=== PATIENT | female | born 1960 | race Caucasian/White ===

== ENCOUNTER 2022-01-29 12:50 | Outpatient (CLI) | payer OTHER, SELFPAY ==
--- NOTE | 2022-01-29 13:04 | ECG_ITS ---
Measurements Intervals [place] Rate: 74 P: 23 OK: 135 QRS: 2 QRSD: 95 T: 31 QT: 387 QTc: 432 Interpretive Statements SINUS RHYTHM WITHIN NORMAL LIMITS NO PREVIOUS ECG AVAILABLE FOR COMPARISON Electronically Signed On 01-29-2022 15:03:39 CDT by Eddi Rodriguez M.D.
[2022-01-29 13:44] LABS: Hematocrit 38.8 % (37.0-47.0); Hemoglobin 12.5 g/dL (12.0-15.0)
[2022-01-29 14:01] LABS: Anion Gap 6 mmol/L (8-16); Blood Urea Nitrogen 21 mg/dL (7-17); Calcium 8.9 mg/dL (8.4-10.2); Carbon Dioxide 27 mmol/L (22-30); Chloride 103 mmol/L (98-107); Estimated Glomerular Filt Rate 57; Glucose 99 mg/dL (65-110); Potassium 3.9 mmol/L (3.4-5.0); Sodium 136 mmol/L (137-145)
== END 2022-01-29 12:51 | disposition home or self-care (01) ==
LOC: ANHSURGERY 12:55
PROVIDERS: Anesthesiology; PCP Family Medicine; Visit Provider Obstetrics & Gynecology Gynecology
DX: Z01.818 Encounter for other preprocedural examination (principal); I10 Essential (primary) hypertension; N85.02 Endometrial intraepithelial neoplasia [EIN]; Z79.899 Other long term (current) drug therapy
CPT/HCPCS: 36415; 80048; 85014; 85018; 86850; 86900; 86901; 93005

== ENCOUNTER 2022-02-05 14:29 | Inpatient (IN) | payer OTHER, SELFPAY ==
[2022-01-26 15:04] VITALS: BMI 40.7
--- NOTE | 2022-01-26 15:16 | PC.NURSE ---
Report to the Outpatient Waiting Room, entrance under the green pavilion located off [facility], at time 7:30 on date 02/05/22. OR Time: 9:30. - You and your visitor will be asked a series of questions to screen for COVID 19 for your protection. - A mask is required within the hospital. One visitor will be allowed to accompany the patient into the hospital. Patients visitor will be instructed to remain with patient at all times or leave the building. We will allow the visitor to come back to the postoperative area when patient is ready. Preoperative COVID Testing Requirements: No COVID Test needed if: (proof is required; if not received patient will have Rapid Test prior to entry) - Patient has received COVID Vaccine at least 14 days prior to procedure date or - Patient has positive COVID test result within last 90 days of surgery date. COVID Test needed if above criteria is not met Patients may have clear liquids (water, carbonated beverages, clear teas, apple juice) until 3 hours prior to surgery (6:30) with a maximum of 20 ounces. - No food from midnight until time of surgery Take the following medications with a SIP of water the morning of surgery: BUPROPION, BUSPIRONE, TRINTELLIX Medications to discontinue per physician: VITAMINS/SUPPLEMENTS Date to take last dose: 02/01/22 Please no make-up, nail turkmen, hairspray, perfume, deodorant, or body powder the day of surgery. No jewelry (including any body piercings) or valuables the day of surgery, leave them at home. Please take a shower or bath the night before, or the morning of, surgery with an antibacterial soap. Wear comfortable, loose fitting clothing. - Jewelry must be removed prior to entering the operating room. Rings and piercings that are not removed may be cut off. - The hospital will not accept responsibility for valuables. - Please leave all valuables, including medications, at home the day of surgery. If you are going home after surgery, a licensed [employer] driver must drive you home. - NO public transportation without another adult. - We recommend that an adult stay with you for 24 hours following discharge. - We also recommend that you do not drive, make important decision, drink alcoholic beverages, or take any drugs that were not prescribed by your health care provider for at least 24 hours after your discharge time. Follow any additional instructions given to you from your surgeon. Telephone instructions given to WILLIAM LOPEZ and asked if any additional questions and then verbalized understanding. Patient advised to call surgeon office or pre surgery nurse liaison [phone] if any additional questions.
[2022-02-05] VITALS (12 sets, daily range): BP systolic 108–147; BP diastolic 64–80; PULSE 73–92; RESP 12–20; TEMP 36.1–36.6; O2SAT 95–100
--- NOTE | ~2022-02-05 | XR_ITS ---
EXAMINATION: XR abdomen/kub 1V DATE: 02/05/2022 12:41 INDICATION: Second check for retained foreign body post hysterectomy. TECHNIQUE: A supine view of the abdomen and lower abdomen and pelvis was obtained. COMPARISON: 02/05/2022 at 12:12 PM FINDINGS: The previously seen foreign body present with lap sponge is no longer visualized and has reportedly b een removed. No residual foreign bodies identified in the visualized lower abdomen and pelvis. The up per abdomen and portions of the right pelvis and right lower quadrant are excluded from the field-of- view. IMPRESSION: 1. Prior retained radiopaque foreign body, likely a lap sponge, is no longer visualized and has repor tedly been removed. Reviewed, dictated and finalized at location B. IMPRESSION: 1. Prior retained radiopaque foreign body, likely a lap sponge, is no longer vi sualized and has reportedly been removed.
--- NOTE | ~2022-02-05 | XR_ITS ---
EXAMINATION: XR abdomen/kub 1V DATE: 02/05/2022 12:19 INDICATION: Emergency section. TECHNIQUE: A supine view of the abdomen was obtained. A repeat supine view of the abdomen was obtaine d with placement of a lap sponge external to the patient along the left side of the abdomen for oc rison. Potential antral foreign body seen on the initial imaging. COMPARISON: None. FINDINGS: There is a thin tape-like radiopaque foreign body projecting over the lower abdomen/upper pelvis whic h appears similar to the lab sponge marker placed external to the patient on the subsequent image. No other radiopaque foreign bodies identified. Normal bowel gas pattern. IMPRESSION: 1. Retained lap sponge in the lower abdomen/upper pelvis. Reviewed, dictated and finalized at location B.
--- NOTE | 2022-02-05 07:36 | WPDHPUPDATE1 ---
History and Physical Update Update Date/Time: 02/05/22 07:36 History and Physical has been reviewed, including an updated exam of the patient. There are NO changes in the patient's condition. Risks, benefits, and alternatives have been discussed and questions answered. Patient agrees to proceed with procedure.
--- NOTE | 2022-02-05 07:37 | PM.IMHP ---
H&P: HPI History of Present Illness Date/Time: 02/05/22 07:37 Chief Complaint: Complex endometrial hyperplasia with atypia Narrative: The patient is a 61-year-old 2 para 2 being admitted for laparoscopic-assisted vaginal hysterectomy with bilateral salpingo-oophorectomy. Patient with onset of vaginal bleeding approximately May of 2021. Hysteroscopy with endometrial biopsy showing complex atypical endometrial hyperplasia. It was recommended to proceed with hysterectomy. The pelvic ultrasound showed a 1.9cm cystic region in the right adnexa. Therefore this area will be evaluated with laparoscopy. Risks of surgery including infection, bleeding, deep vein thrombosis, anesthesia, and injury to internal organs (bowel, bladder, ureters), and the risk for open procedure were reviewed. At her preop visit the patient revealed history of mild stress incontinence. It was offered to reschedule surgery and workup the stress incontinence and the patient declined. The plan is for postoperative physical therapy. Patient voiced understanding and agreed to proceed. Review of Systems Genitourinary: Genitourinary: Reports urinary incontinence (Mild stress incontinence) Psychiatric: Psychiatric: Reports anxiety PMFSH Past Medical History Medical History (Updated 02/05/22 @ 07:44 by Angi Werner MD) Anxiety Depression HTN (hypertension) (normal spontaneous vaginal delivery) X2 Surgical History Surgical History (Updated 02/05/22 @ 07:42 by Angi Werner MD) History of hysteroscopy Social History Social History Smoking status: Never smoker Alcohol intake: never Substance use: never Substance use type: does not use Living arrangements: with family Spiritual care concerns: No Meds Home Medications and Allergies Home Medications Medication Instructions Recorded Confirmed Type bupropion HCl 150 mg PO QAM 01/26/22 01/26/22 History buspirone 10 mg PO DAILY 01/26/22 01/26/22 History glucos sul [id number]-Mn 1 cap PO DAILY 01/26/22 01/26/22 History [Glucosamine Chondroitin] losartan-hydrochlorothiazide 1 tablet PO DAILY 01/26/22 01/26/22 History multivitamin 1 tablet PO DAILY 01/26/22 01/26/22 History omega-3 fatty acids [Fish Oil] 1,000 mg PO DAILY 01/26/22 01/26/22 History potassium 20 mg PO DAILY 01/26/22 01/26/22 History vortioxetine [Trintellix] 20 mg PO DAILY 01/26/22 01/26/22 History Allergies Allergy/AdvReac Type Severity Reaction Status Date / Time iodine Allergy Hives Verified 01/26/22 15:00 Exam Const: General: healthy appearing and alert Orientation/consciousness: patient oriented x3 Resp: Effort & Inspection: normal respiratory effort Auscultation: clear to auscultation bilaterally Cardio: Rate: regular rate Rhythm: regular rhythm GI: GI Palp: Yes Soft to palpation, No Tenderness to palpation present (GI) and No Palpable mass present : External Female Exam: normal external appearance Speculum Exam - Vagina: normal appearance of the vagina, normal vaginal discharge and vagina atrophic Speculum Exam - Cervix: normal appearance of the cervix Bimanual exam- vagina & uterus: uterine size normal and consistency normal Bimanual Exam- Adnexa, other: normal adnexae and No adnexal tenderness Neuro: General: patient oriented x3 Assessment and Plan Assessment and plan (1) Complex endometrial hyperplasia with atypia: Code(s): N85.02 - Endometrial intraepithelial neoplasia [EIN] Status: Acute Assessment and Plan: Plan is to proceed with laparoscopic-assisted vaginal hysterectomy.
[2022-02-05] MEDS: ACETAMINOPHEN 500 MG TABLET 1000 MG PO (07:46)
--- NOTE | 2022-02-05 07:53 | P.PNAN_ITS ---
Anes - Initial Pre Proc Eval Procedure: Operation Date: 02/05/22 09:30 Proposed Procedures p Laparoscopic Assisted Vaginal Hysterectomy with Bilateral Salpingo Oophorectomy - Angi Werner MD Date/Time: 02/05/22 07:53 Surgeon: Angi Werner MD Pre Op Diagnosis: complex hyperplasia with atypia Patient Data Age: 61 Gender: F Height: 1.6 m Weight: 101.6 kg Allergies Allergy/AdvReac Type Severity Reaction Status Date / Time iodine Allergy Hives Verified 01/26/22 15:00 Home Medications Medication Instructions Recorded Confirmed Type bupropion HCl 150 mg PO QAM 01/26/22 01/26/22 History buspirone 10 mg PO DAILY 01/26/22 01/26/22 History glucos sul [id number]-C-Mn 1 cap PO DAILY 01/26/22 01/26/22 History [Glucosamine Chondroitin] losartan-hydrochlorothiazide 1 tablet PO DAILY 01/26/22 01/26/22 History multivitamin 1 tablet PO DAILY 01/26/22 01/26/22 History omega-3 fatty acids [Fish Oil] 1,000 mg PO DAILY 01/26/22 01/26/22 History potassium 20 mg PO DAILY 01/26/22 01/26/22 History vortioxetine [Trintellix] 20 mg PO DAILY 01/26/22 01/26/22 History Patient hx anesthesia problems: none Family hx anesthesia problems: none Results Review: All pre-operative results and documents have been reviewed as part of the pre-operative evaluation. [facility] Past Medical History Medical History (Updated 02/05/22 @ 07:54 by Rinku Ugalde DO) Anxiety Depression History of subarachnoid hemorrhage HTN (hypertension) (normal spontaneous vaginal delivery) X2 TOMEKA (obstructive sleep apnea) Surgical History Surgical History (Updated 02/05/22 @ 07:42 by Angi Werner MD) History of hysteroscopy Social History Social History Smoking status: Never smoker Alcohol intake: never Substance use: never Substance use type: does not use Living arrangements: with family Spiritual care concerns: No Anes - Eval Final PreProcedure Day of Procedure 02/05/22 07:53 Patient weight: obese Heart: regular rate and rhythm Lungs: clear to auscultation and normal air movement Airway: Mallampati scale class III Neurological: alert and oriented Last oral intake: >/= 8 hours ASA classification: III Emergent: no Anesthetic plan: proceed Anesthesia type and monitoring: general ETT and standard monitoring Results Review: All pre-operative results and documents have been reviewed as part of the pre-operative evaluation. Informed Consent: The patient's anesthetic plan and its attendant risks and benefits were discussed with the patient/family/POA. Questions were solicited and answers provided to the satisfaction of the patient/family/POA.
[2022-02-05] MEDS: LACTATED RINGERS 1,000 ML 30 ML IV CONT ×3 (08:02→13:54)
[2022-02-05] MEDS: KETOROLAC 15 MG/ML VIAL (*BKC) IV PUSH (08:04)
[2022-02-05] MEDS: ceFAZolin 2 GM/D5W 50 ML 2 GM/50 ML BAG IVPB (09:18)
[2022-02-05] MEDS: LIDO 1%/EPINEPHRINE/PF 1:200,000 30 ML VIAL XX (10:00)
[2022-02-05] MEDS: TRANEXAMIC ACID 1,000 MG/10 ML AMPUL 1000 MG IV PUSH (11:37)
--- NOTE | 2022-02-05 11:58 | W.PM.PROC2 ---
Procedure Note - Detailed Date of Procedure 02/05/22 Pre-op Diagnosis complex hyperplasia with atypia Post-op Diagnosis Same Procedure Performed Partial laparoscopic-assisted hysterectomy converted to total abdominal hysterectomy bilateral salpingo oophorectomy Surgeon Angi Werner MD Anesthesia General Findings Bilateral tubal cysts. Normal-appearing tubes, ovaries, and uterus. Distance from the perineum to the cervix after laparoscopic work is beyond my reach. Description of Procedure The patient was taken to the operating room and placed in the dorsal lithotomy position. Patient was prepped and draped in usual sterile fashion. Stow speculum was placed in the vagina and the cervix grasped on the anterior lip with a tenaculum. The acorn manipulator was placed. Attention is turned to the abdomen where a vertical skin incision was made with a scalpel at the base of the umbilicus. The abdomen is tented and the Veress needle placed and was noted to be too short. The long Veress needle was requested. The abdomen is tented with towel clamps and the long Veress needle placed. Water drop test is normal and opening patient pressure was 6mmHg. Pneumoperitoneum was obtained to a patient pressure of 15. The Veress needle was removed and the short 5mm trocar was too short. The long trocars opened in placed. Intra-abdominal placement was confirmed with the laparoscoped. The patient was placed in Trendelenburg. Two lower 5mm trocars were placed 1 on the left and 1 on the right 2cm above the symphysis pubis. The blunt probe was used to bring the tubes and ovaries into the field and the grasper was used to hold the left tubo-ovarian ligament. The utero-ovarian ligament is cauterized and transected in a serial manner using a LigaSure. The round ligament is cauterized and transected with the LigaSure. The identical procedure was performed on the right side. Attention was then returned to the perineum. The cervix did not have any significant descent. I was barely able to reach the cervix with my middle and index finger. The cervix was injected anteriorly with 1% lidocaine with epinephrine. Decision was made to abort the vaginal portion of the procedure and convert to an open procedure. Once all instruments were obtained the trocars are removed and the umbilical incision is closed using 4-0 nylon. The Pfannenstiel skin incision is made through the previous 2 lower trocars and extended laterally. The fascia is nicked in the midline and extended laterally using Munoz scissors. [facility] was used to tent the fascia which was then dissected off using sharp and blunt dissection. The peritoneum was entered using a Peon. The bowel was packed away using moist laparotomy sponges and the bowel force placed. The cornu were grasped with large Peans. The bladder flap was created using Metzenbaum scissors. A bladder was dissected downward using a sponge stick. The uterine vessels are clamped, transected, and suture ligated with 0 Vicryl. The cardinal and uterosacral ligaments are serially clamped, transected, and suture ligated with 0 Vicryl. The uterosacral ligaments were tagged for future use. The vaginal cuff was entered anteriorly using a scalpel. The vaginal cuff was grasped anteriorly and posteriorly with long Allis clamps. The specimen was amputated. The cyst vaginal cuff was closed using 0 Vicryl in a running locked fashion with several [id number] sutures required for hemostasis of the cuff. Hematoma was placed between the bladder flap and the vaginal cuff. Good hemostasis is noted at all pedicles and at the vaginal cuff at the time of closure. Sponges and instruments are removed. The fascia was closed using 0 Vicryl in a running fashion. Subcutaneous tissues are irrigated made hemostatic using Bovie cautery. The skin is closed using 4-0 Vicryl in a subcuticular fashion and Dermaflex was placed over the incision. Needle and instrument counts are
--- NOTE | 2022-02-05 13:01 | SUR.OPER ---
Final count conducted by BRENNAN Rojas and RICH Vazquez. It was noted that lap sponge count was incorrect. Dr. Werner was informed and STAT Portable X-ray was performed in the operating room while patient was still on the operating table and under anesthesia. X-ray was read by radiologist and was suspicious. Radiopaque object noted on X-ray. Dr. Werner informed of results. Initial incision was closed so incision had to be re-opened under sterile technique Lap sponge retrieved from abdomen by Dr. Werner. Final count performed again and was correct. X-ray obtained at the end and no radiopaque objects noted.
[2022-02-05] MEDS: fentaNYL CITRATE INJ (*CRX) 100 MCG/2 ML VIAL 25 MCG IV PUSH ×5 (13:26→13:55)
[2022-02-05] MEDS: HYDROmorphone HCL INJ (*CRX) 1 MG/ML SYR IV PUSH ×3 (14:06→14:25)
[2022-02-05] MEDS: DEXTROSE 5%/LACTATED RINGERS 1,000 ML 125 ML IV CONT ×2 (14:56→18:52)
[2022-02-05] MEDS: KETOROLAC 30 MG/ML VIAL (*BKC) IV PUSH (15:05)
--- NOTE | 2022-02-05 16:51 | OBPPTRN ---
1437 Patient transferred to post room #289 via bed. Support person present. Oriented to unit, room, information board, admission packet and security measures. Patient verbalizes understanding.
[2022-02-05] MEDS: SIMETHICONE 80 MG TAB.CHEW PO (18:53)
[2022-02-05] MEDS: HYDROcodone/acetaminophen (*CRX) 10-325 MG TABLET 1 TAB PO (18:53)
[2022-02-05] MEDS: IBUPROFEN 600 MG TABLET PO (21:25)
[2022-02-05] MEDS: HYDROcodone/acetaminophen (*CRX) 5-325 MG TABLET 1 TAB PO (21:25)
[2022-02-06] VITALS: BP 106/67; PULSE 87; RESP 18; TEMP 36.9; O2SAT 95
[2022-02-06] MEDS: ONDANSETRON INJ 4 MG/2 ML VIAL IV PUSH (01:50)
[2022-02-06] MEDS: HYDROcodone/acetaminophen (*CRX) 10-325 MG TABLET 1 TAB PO ×3 (01:50→10:54)
[2022-02-06] MEDS: DEXTROSE 5%/LACTATED RINGERS 1,000 ML 125 ML IV CONT (02:49)
[2022-02-06 04:00] VITALS: BP 115/62; PULSE 92; RESP 18; TEMP 36.8
[2022-02-06 06:02] LABS: Basophils Percent Auto 0.3 % (0.2-1.2); Eosinophils Percent Auto 0.3 % (0-4.4); Hematocrit 27.9 % (37.0-47.0); Hemoglobin 9.2 g/dL (12.0-15.0); Immature Granulocyte Absolute 0.03 K/mm3 (0.00-0.031); Immature Granulocyte Percent A 0.4 % (0-0.5); Lymphocytes Absolute Auto 1.38 K/mm3 (0.9-3.2); Lymphocytes Percent Auto 17.5 % (18.3-44.2); Mean Corpuscular Hemoglobin 29.9 pg (26-34); Mean Corpuscular Volume 90.6 fl (80-100); Mean Platelet Volume 9.7 fl (7.4-10.4); Monocytes Absolute Auto 0.4 K/mm3 (0.1-0.6); Monocytes Percent Auto 5.5 % (2.6-8.5); Platelet Count Result 225 k/mm3 (150-375); Red Blood Count 3.08 M/mm3 (4.2-5.4); Red Cell Distribution Width 13.5 % (11.5-14.5); White Blood Count 7.9 K/mm3 (4.5-10.0)
[2022-02-06] MEDS: IBUPROFEN 600 MG TABLET PO ×2 (07:02→19:14)
[2022-02-06] MEDS: SIMETHICONE 80 MG TAB.CHEW PO ×2 (07:04→10:54)
--- NOTE | 2022-02-06 07:48 | PM.GYNPNOP ---
FLASK CARRIER - A/P Postoperative Procedures: Procedures Operation Date: 02/05/22 09:30 Actual Procedure Side Surgeon p Abdominal Hysterectomy Bilateral Salpingo Oopherectomy Bilateral Angi Werner MD Postoperative day: 1 Postoperative status: doing well and other (urine output adequate but lower normal; encouraged drinking and ambulation) Postoperative plan: routine post-op care Time Spent With Patient Time: Total time spent is greater than 50% in coordination of care (as documented) at patient's floor/unit and/or counseling patient: Time with patient: less than 15 minutes FLASK CARRIER- PN:Subj Post-Op Subjective Date/time seen: 02/06/22 07:48 Subjective: patient reports feeling better and pain is well controlled Exam Narrative: abdomen soft, nt inc c/d/i FLASK CARRIER - PN: Obj Data Vital Signs Vital Signs: Vital Signs - 24 hr 02/05/22 08:08 02/05/22 12:54 02/05/22 13:00 Temperature 97.6 F 97 F L Pulse Rate 80 81 74 Respiratory Rate 20 17 13 Blood Pressure 139/67 125/66 131/64 Pulse Oximetry 99 100 100 02/05/22 13:15 02/05/22 13:30 02/05/22 13:45 Temperature Pulse Rate 73 79 79 Respiratory Rate 12 20 12 Blood Pressure 117/80 138/73 147/67 H Pulse Oximetry 100 100 97 02/05/22 14:00 02/05/22 14:21 02/05/22 14:40 Temperature 97.8 F Pulse Rate 76 91 92 Respiratory Rate 12 14 18 Blood Pressure 131/71 138/69 141/65 H Pulse Oximetry 96 97 95 02/05/22 18:50 02/05/22 19:00 02/05/22 19:20 Temperature 97.9 F Pulse Rate 74 Respiratory Rate 20 20 Blood Pressure 108/71 Pulse Oximetry 95 98 95 02/06/22 00:00 02/06/22 04:00 Temperature 98.4 F 98.3 F Pulse Rate 87 92 Respiratory Rate 18 18 Blood Pressure 106/67 115/62 Pulse Oximetry 95 Intake/Output Intake/Output: Intake & Output 02/03/22 02/04/22 02/05/22 02/06/22 23:59 23:59 23:59 23:59 Intake Total 3190 4500 Output Total 85 500 Balance 3105 4000 Meds/Results Medications: Active Medications Generic Name Dose Route Start Last Admin Trade Name Freq PRN Reason Stop Dose Admin Hydrocodone Bitart/Acetaminophen 1 tab 02/05/22 14:29 02/05/22 21:25 Hydrocodone/Acetaminophen (*Crx) 5-325 Mg Tablet PO 1 tab Q3H PRN Administration Pain Rated 5 or Less Hydrocodone Bitart/Acetaminophen 1 tab 02/05/22 14:29 02/06/22 07:03 Hydrocodone/Acetaminophen (*Crx) 10-325 Mg Tablet PO 1 tab Q3H PRN Administration Pain Rated 6 or Greater Bupropion HCl 150 mg 02/06/22 09:00 Bupropion Hcl Xl (24 Hr) 150 Mg Tabcr PO QAM MARILYN Buspirone HCl 10 mg 02/06/22 09:00 Buspirone Hcl 10 Mg Tablet PO DAILY MARILYN Hydrochlorothiazide 25 mg 02/06/22 09:00 Hydrochlorothiazide 25 Mg Tablet PO QAM MARILYN Dextrose/Lactated Ringer's 1,000 mls @ 125 mls/hr 02/05/22 14:29 02/06/22 02:49 Dextrose 5%/Lactated Ringers IV CONT 125 mls/hr .Q8H MARILYN Administration Fentanyl Citrate 600 mcg in 30 mls @ 0.5 mls/hr 02/05/22 14:29 Fentanyl 600 Mcg/Ns 30 Ml Web Design Instructor IV CONT PRN PRN INCOME TAX PREPARER Management Protocol 10 MCG/HR Ibuprofen 600 mg 02/05/22 14:29 02/06/22 07:02 Ibuprofen 600 Mg Tablet PO 600 mg Q6H PRN Administration Cramping Ketorolac Tromethamine 30 mg 02/05/22 14:29 02/05/22 15:05 Ketorolac 30 Mg/Ml Vial (*Bkc) IV PUSH 02/10/22 14:28 30 mg Q6H PRN Administration Pain Rated 4-6 Losartan Potassium 100 mg 02/06/22 09:00 Losartan Potassium 100 Mg Tablet PO DAILY [facility] Miscellaneous Information 0 each 02/05/22 00:01 Kcl 20 Meq Chewable Is Non-Formulary XX 03/07/22 00:00 CLARIFY [facility] Miscellaneous Information 0 each 02/05/22 00:01 Trintellix Is Non-Formulary. Use Pt Own Supply? XX 03/07/22 00:00 CLARIFY [facility] Naloxone HCl 0.1 mg 02/05/22 14:29 Naloxone Hcl 0.4 Mg/Ml Vial IV PUSH Q2M PRN Respiratory rate less than 10 Non-Formulary Medication 20 mg 02/06/22 09:00 Potassium PO 03/08/22 08:59 DAILY S
[2022-02-06 08:20] VITALS: BP 104/49; PULSE 81; RESP 18; TEMP 37.2; O2SAT 93
[2022-02-06] MEDS: busPIRone HCL 10 MG TABLET PO (08:34)
[2022-02-06] MEDS: LOSARTAN POTASSIUM 100 MG TABLET PO (08:34)
[2022-02-06] MEDS: hydroCHLOROthiazide 25 MG TABLET PO (08:34)
[2022-02-06] MEDS: buPROPion HCL XL (24 HR) 150 MG TABCR PO (08:35)
--- NOTE | 2022-02-06 09:10 | P.PNAN_ITS ---
Anes - Prog Note Post-Op Date/Time: 02/06/22 09:10 Cardiovascular status: normal Respiratory status: normal Airway patency: baseline Mental status: baseline Post-Op hydration status: normal Vital Signs: Last Vital Signs Temp 98.3 F 02/06/22 04:00 Pulse 92 02/06/22 04:00 Resp 18 02/06/22 04:00 BP 115/62 02/06/22 04:00 Pulse Ox 95 02/06/22 00:00 Pain Score (VAS): 5 I/O: Intake & Output 02/05/22 02/06/22 02/06/22 23:59 07:59 15:59 Intake Total 1440 4500 Output Total 50 500 Balance 1390 4000 Laboratory Tests 02/06/22 05:04 02/06/22 05:04 WBC 7.9 RBC 3.08 L Hgb 9.2 L D Hct 27.9 L MCV 90.6 MCH 29.9 MCHC 33.0 RDW 13.5 Plt Count 225 MPV 9.7 Immature Gran % (Auto) 0.4 Neut % (Auto) 76.0 H Lymph % (Auto) 17.5 L [place] % (Auto) 5.5 Eos % (Auto) 0.3 Baso % (Auto) 0.3 Lymph # (Auto) 1.38 [place] # (Auto) 0.4 Eos # (Auto) 0.0 Baso # (Auto) 0.0 Abs Immat Gran (auto) 0.03 Absolute Neuts (auto) 6.0 Absolute Nucleated RBC 0.0 Nucleated RBC % 0.0 Post-procedural complaints: nausea (pt states nausea during night following medication with narcotics) Patient Feedback: Patient satisfied with anesthetic care.
[2022-02-06 18:50] VITALS: BP 131/75; PULSE 77; RESP 18; TEMP 36.7
[2022-02-07] MEDS: HYDROcodone/acetaminophen (*CRX) 5-325 MG TABLET 1 TAB PO ×2 (02:58→09:38)
--- NOTE | 2022-02-07 07:35 | PM.GYNPNOP ---
PEGGER DOBBY LOOMS - A/P Postoperative Procedures: Procedures Operation Date: 02/05/22 09:30 Actual Procedure Side Surgeon p Abdominal Hysterectomy Bilateral Salpingo Oopherectomy Bilateral Angi Werner MD Postoperative day: 2 Postoperative status: doing well Postoperative plan: routine post-op care and discharge Time Spent With Patient Time: Total time spent is greater than 50% in coordination of care (as documented) at patient's floor/unit and/or counseling patient: Time with patient: less than 15 minutes [facility]GG[facility]BB[facility]OMS- PN:Subj Post-Op Subjective Date/time seen: 02/07/22 07:35 Subjective: patient reports feeling better, patient has no complaints, pain is well controlled and patient is tolerating oral intake Exam Narrative: inc c/d/i abdomen soft, nt PEGGER DOBBY LOOMS - PN: Obj Data Vital Signs Vital Signs: Vital Signs - 24 hr 02/06/22 08:20 02/06/22 18:50 Temperature 99 F 98.0 F Pulse Rate 81 77 Respiratory Rate 18 18 Blood Pressure 104/49 L 131/75 Pulse Oximetry 93 Intake/Output Intake/Output: Intake & Output 02/04/22 02/05/22 02/06/22 02/07/22 23:59 23:59 23:59 23:59 Intake Total 3190 6030 Output Total 85 1150 Balance 3105 4880 Meds/Results Medications: Active Medications Generic Name Dose Route Start Last Admin Trade Name Freq PRN Reason Stop Dose Admin Hydrocodone Bitart/Acetaminophen 1 tab 02/05/22 14:29 02/07/22 02:58 Hydrocodone/Acetaminophen (*Crx) 5-325 Mg Tablet PO 1 tab Q3H PRN Administration Pain Rated 5 or Less Hydrocodone Bitart/Acetaminophen 1 tab 02/05/22 14:29 02/06/22 10:54 Hydrocodone/Acetaminophen (*Crx) 10-325 Mg Tablet PO 1 tab Q3H PRN Administration Pain Rated 6 or Greater Bupropion HCl 150 mg 02/06/22 09:00 02/06/22 08:35 Bupropion Hcl Xl (24 Hr) 150 Mg Tabcr PO 150 mg QAM MARILYN Administration Buspirone HCl 10 mg 02/06/22 09:00 02/06/22 08:34 Buspirone Hcl 10 Mg Tablet PO 10 mg DAILY MARILYN Administration Hydrochlorothiazide 25 mg 02/06/22 09:00 02/06/22 08:34 Hydrochlorothiazide 25 Mg Tablet PO 25 mg QAM MARILYN Administration Ibuprofen 600 mg 02/05/22 14:29 02/06/22 19:14 Ibuprofen 600 Mg Tablet PO 600 mg Q6H PRN Administration Cramping Ketorolac Tromethamine 30 mg 02/05/22 14:29 02/05/22 15:05 Ketorolac 30 Mg/Ml Vial (*Bkc) IV PUSH 02/10/22 14:28 30 mg Q6H PRN Administration Pain Rated 4-6 Losartan Potassium 100 mg 02/06/22 09:00 02/06/22 08:34 Losartan Potassium 100 Mg Tablet PO 100 mg DAILY MARILYN Administration Naloxone HCl 0.1 mg 02/05/22 14:29 Naloxone Hcl 0.4 Mg/Ml Vial IV PUSH Q2M PRN Respiratory rate less than 10 Non-Formulary Medication 20 mg 02/06/22 09:00 Potassium PO 03/08/22 08:59 DAILY MARILYN Non-Formulary Medication 20 mg 02/06/22 09:00 Vortioxetine [Trintellix] PO 03/08/22 08:59 DAILY MARILYN Ondansetron HCl 4 mg 02/05/22 14:29 02/06/22 01:50 Ondansetron Inj 4 Mg/2 Ml Vial IV PUSH 4 mg Q6H PRN Administration Nausea Simethicone 80 mg 02/05/22 14:29 02/06/22 10:54 Simethicone 80 Mg Tab.Chew PO 80 mg Q2H PRN Administration Gas Radiology Results: ITS Impressions Abdomen X-Ray 02/05/22 12:49 IMPRESSION: 1. Prior retained radiopaque foreign body, likely a lap sponge, is no longer visualized and has reportedly been removed. Labs CBC & Chem 7: 02/06/22 05:04
--- NOTE | 2022-02-07 07:36 | P.DS_ITS ---
DS: Admitting Diagnosis Discharge Date 02/07/22 Admitting Diagnosis complex hyperplasia with atypia DS: Discharge Diagnosis Discharge Diagnosis (1) Complex endometrial hyperplasia with atypia: Code(s): N85.02 - Endometrial intraepithelial neoplasia [EIN] Status: Acute (2) S/P MARGARITA-BSO: Code(s): Z90.710 - Acquired absence of both cervix and uterus; Z90.722 - Acquired absence of ovaries, bilateral; Z90.79 - Acquired absence of other genital organ(s) Status: Acute DS: Summary Hospital Course Hospital Course: Patient tolerating diet, voiding, and ambulating without dif ficulty. Status at Discharge Functional status at discharge: independent ambulation Overall status at discharge: patient is progressing back to baseline Time Spent with Patient Time attestation: Total time spent providing and/or coordinating discharge se rvices: DS: Data Data Completed and Pending Pending studies at discharge: Pending at discharge 02/05/22 11:21 Surgical [PTH] Routine Discharge Plan Discharge Attending physician on discharge: Angi Werner Discharging Clinician: Angi Werner Anticipated Discharge Date/Time: 02/07/22 07:37 Patient Disposition: Home, Self-Care Activity: may shower, may drive after 2 weeks and pelvic rest Diet: regular Patient Instructions: Antibiotic Form Stand Alone Forms: General Discharge Information Follow-up/Referrals: Angi Werner MD [Physician] - 1 Week (and 6 wk) Discharge Medications: New hydrocodone-acetaminophen 5-325 mg Tablet 1 tablet PO Q4H PRN (Reason: Pain Rated 5 Or Less) Qty: 20 RF: 0 Continued multivitamin Tablet 1 tablet PO DAILY RF: 0 losartan-hydrochlorothiazide 100-25 mg Tablet 1 tablet PO DAILY RF: 0 buspirone 10 mg Tablet 10 mg PO DAILY RF: 0 potassium 20 mg Tablet,Chewable 20 mg PO DAILY RF: 0 Fish Oil Capsule 1,000 mg PO DAILY RF: 0 bupropion HCl 150 mg Tablet Extended Release 24 Hr 150 mg PO QAM RF: 0 Trintellix 20 mg Tablet 20 mg PO DAILY RF: 0 Glucosamine Chondroitin 550-30-1 mg Capsule 1 cap PO DAILY RF: 0 Date of admission: 02/05/22 14:29 Primary Care Provider: EvelynСветлана Admitting Provider: Angi Werner Attending physician on admission: Angi Werner Condition: Stable
[2022-02-07 08:30] VITALS: BP 123/69; PULSE 83; RESP 16; TEMP 37; O2SAT 98
[2022-02-07] MEDS: buPROPion HCL XL (24 HR) 150 MG TABCR PO (08:49)
[2022-02-07] MEDS: IBUPROFEN 600 MG TABLET PO (08:49)
[2022-02-07] MEDS: busPIRone HCL 10 MG TABLET PO (08:49)
[2022-02-07] MEDS: LOSARTAN POTASSIUM 100 MG TABLET PO (08:50)
[2022-02-07] MEDS: hydroCHLOROthiazide 25 MG TABLET PO (08:50)
== END 2022-02-07 10:20 | disposition home or self-care (01) | DRG 743 ==
LOC: ANHOB2 14:31
PROVIDERS: Admitting Provider Obstetrics & Gynecology Gynecology; PCP Family Medicine; Visit Provider Obstetrics & Gynecology Gynecology
PROC: 0UT94ZZ Resection of Uterus, Percutaneous Endoscopic Approach (ICD-10-PCS; 2022-02-05 09:30)
DX: N85.02 Endometrial intraepithelial neoplasia [EIN] (principal); N83.8 Other noninflammatory disorders of ovary, fallopian tube and broad ligament; I10 Essential (primary) hypertension; F41.9 Anxiety disorder, unspecified; F32.A Depression, unspecified; G47.33 Obstructive sleep apnea (adult) (pediatric); E66.9 Obesity, unspecified; Z68.39 Body mass index [BMI] 39.0-39.9, adult; Z53.31 Laparoscopic surgical procedure converted to open procedure
CPT/HCPCS: 36415; 74018; 80048; 85014; 85018; 85025; 86850; 86900; 86901; 88307; 93005; A9270; J0330; J0690; J1170; J1885; J2250; J2270; J2405; J2704; J3010; J7120; J7121